=== PATIENT | female | born 1995 | race Caucasian/White ===

== ENCOUNTER 2022-06-24 00:58 | Day surgery (SDC) | payer BC, SELFPAY ==
[2022-06-14 12:55] VITALS: BMI 21.7
--- NOTE | 2022-06-14 13:03 | PC.NURSE ---
Report to the Outpatient Waiting Room, entrance under the green pavilion located off [facility], at time 0600 on date 06/24/22. Planned Procedure Time: 0730. Time changes happen often and if your time is changed the preop area will call you the afternoon before. - You and your visitor will be asked to self-screen and do not enter if you have any COVID symptoms. - Only one visitor is requested with a max of two and NO children visitors are allowed at this time. - The patient visitor may be requested to leave or wait in car when not with patient due to distancing restrictions. - A mask is optional within the hospital at this time. Patients may have clear liquids (water, carbonated beverages, clear teas, apple juice) until 3 hours prior to surgery with a maximum of 20 ounces. - No food from midnight until time of surgery Take the following medications with a SIP of water the morning of surgery: PAROXETINE DO NOT STOP ANY OF YOUR OTHER PRESCRIPTION MEDICATIONS PRIOR TO SURGERY EXCEPT THE FOLLOWING Medications to discontinue per physician: VITAMINS/SUPPLEMENTS Date to take last dose: 06/20/22 Please no make-up, nail nepali, hairspray, perfume, deodorant, or body powder the day of surgery. No jewelry (including any body piercings) or valuables the day of surgery, leave them at home. Please take a shower or bath the night before, or the morning of, surgery with an antibacterial soap. Wear comfortable, loose fitting clothing. - Jewelry must be removed prior to entering the operating room. Rings and piercings that are not removed may be cut off. - The hospital will not accept responsibility for valuables. - Please leave all valuables, including medications, at home the day of surgery. If you are going home after surgery, a licensed cat driver must drive you home. - NO public transportation without another adult if you receive anesthesia. - We recommend that an adult stay with you for 24 hours following discharge. - We also recommend that you do not drive, make important decision, drink alcoholic beverages, or take any drugs that were not prescribed by your health care provider for at least 24 hours after your discharge time. Follow any additional instructions given to you from your surgeon. If you or anyone in your household have experienced Covid symptoms in the past week, please notify your surgeon or the nurse liaison at the phone number below for possible testing. Telephone instructions given to TAMAR RAYO and asked if any additional questions and then verbalized understanding. Patient advised to call surgeon office or pre surgery nurse liaison [phone] if any additional questions.
[2022-06-24 06:09] VITALS: BP 111/70; PULSE 71; RESP 16; TEMP 37.1; O2SAT 99
[2022-06-24] MEDS: LACTATED RINGERS 1,000 ML 30 ML IV CONT (06:30)
--- NOTE | 2022-06-24 07:15 | WPDHPUPDATE1 ---
History and Physical Update Update Date/Time: 06/24/22 07:15 History and Physical has been reviewed, including an updated exam of the patient. There are NO changes in the patient's condition. Risks, benefits, and alternatives have been discussed and questions answered. Patient agrees to proceed with procedure.
--- NOTE | 2022-06-24 07:26 | WPDANESEPPF ---
Anes - Initial Pre Proc Eval Procedure: Operation Date: 06/24/22 07:30 Proposed Procedures p Excision of Left Volar Wrist Ganglion Cyst - Obie Bliss MD Date/Time: 06/24/22 07:26 Surgeon: Obie Bliss MD Pre Op Diagnosis: Lt Volar Wrist Ganglion Cyst Patient Data Age: 27 Gender: F Height: 1.55 m Weight: 49.45 kg Last Vital Signs Temp 37.1 C 06/24/22 06:09 Pulse 71 06/24/22 06:09 Resp 16 06/24/22 06:09 BP 111/70 06/24/22 06:09 Pulse Ox 99 06/24/22 06:09 O2 Del Method Room Air 06/24/22 06:09 Allergies Allergy/AdvReac Type Severity Reaction Status Date / Time Penicillins Allergy Mild RASH Verified 06/14/22 12:54 nitrofurantoin Allergy Rash Verified 06/14/22 12:54 [From Macrobid] Home Medications Medication Instructions Recorded Confirmed Type paroxetine HCl 40 mg tablet 40 mg PO DAILY #30 tabs 04/27/22 06/14/22 Rx dextroamphetamine-amphetamine ER 5 5 mg PO QAM #30 caps 06/07/22 06/14/22 Rx mg 24hr capsule,extend release (Adderall XR) biotin 10,000 mcg chewable tablet 10,000 mcg PO DAILY 06/14/22 06/14/22 History (Hair, Skin and Nails (biotin)) hydrocodone 5 mg-acetaminophen 325 1 tablet PO Q6H PRN pain #5 tabs 06/24/22 Rx mg tablet Patient hx anesthesia problems: none Family hx anesthesia problems: none Results Review: All pre-operative results and documents have been reviewed as part of the pre-operative evaluation. [facility] Past Medical History Medical History Anxiety and depression Encounter for IUD insertion 02/06/15 Mirena insertion Encounter for IUD removal 05/03/19 Mirena removal via hysteroscopy in OR Encounter for screening examination for sexually transmitted disease Surgical History Surgical History H/O eye surgery both eyes as child History of hysteroscopy (05/03/19) 05/03/19 hscope IUD Removal--unable to remove in office Family History Family History Other Unknown family medical history Social History Social History Social History: Caffeine-coffee daily Smoking status: Former smoker Additional smoking assessment comments: FORMER SOCIAL SMOKER Alcohol intake: current Alcohol use details: 2/MONTH Substance use: current Substance use type: marijuana and crack/cocaine Other substance usage details: DAILY MARIJUANA USE Last use: COCAINE - MAY 2022 Lack of Transportation: YES Current Housing: I Have Housing Concerned About Future Housing: No Difficulty Paying Gas/Electric Bills: No Difficulty Paying for Meds: No Currently Unemployed: No Education: Bachelor's Degree Difficulty w/ Childcare or Family Care: No Living arrangements: with friend(s) Additional living arrangements comments: BOYFRIEND Occupation/Education: occupation Additional occupation/education comments: [employer] Gender identity (if verbalized by the patient): Female Sexual Orientation (if Verbalized by the Patient): Straight or Heterosexual Spiritual care concerns: No Anes - Eval Final PreProcedure Day of Procedure 06/24/22 07:26 Patient weight: normal Heart: regular rate and rhythm Lungs: clear to auscultation Airway: Mallampati scale class II Neurological: alert and oriented Last oral intake: >/= 8 hours ASA classification: III Emergent: no Anesthetic plan: proceed Anesthesia type and monitoring: general GIVS and standard monitoring Results Review: All pre-operative results and documents have been reviewed as part of the pre-operative evaluation. Informed Consent: The patient's anesthetic plan and its attendant risks and benefits were discussed with the patient/family/POA. Questions were solicited and answers provided to the satisfaction of the patient/family/POA.
--- NOTE | 2022-06-24 07:27 | P.OP_ITS ---
Procedure Note - Detailed Date of Procedure 06/24/22 Pre-op Diagnosis Lt Volar Wrist Ganglion Cyst Post-op Diagnosis Same Procedure Performed Excision of left volar wrist ganglion cyst Surgeon Obie Bliss MD Senior [employer] Jagjit Anesthesia MAC Indications Painful 2 cm subcutaneous mass Findings Ganglion cyst Description of Procedure The patient's left volar wrist site was marked in the holding area with her consent. She was taken to the operating room and was placed supine on the operating table. She was given IV sedation. The left upper extremity was prepped and draped in usual fashion. The time-out was held and confirmed. The site was marked for an incision and locally infiltrated % lidocaine with epinephrine. The extremity was exsanguinated and the tourniquet inflated to 250 mmHg. The longitudinal incision was made over the mass and skin flaps elevated to either side. Several veins were carefully preserved as the cyst was dissected with primarily blunt dissection until the deep aspect was encountered. The cyst was avulsed from its base. It was not sent to pathology. I was not able to see the radial artery. The tourniquet was released and still we did not clearly define it. Hence, I was reluctant to place sutures to try to coapt the fascia over the origin of the cyst. Most of the bleeding was quelled with digital pressure. The was repaired with intradermal 4-0 Monocryl suture. The usual bandage was applied. She is discharged from the operating room stable condition. A prescription for hydrocodone 5/325 5. Sent to her pharmacy Estimated Blood Loss 3 Drains No Packing No Pathology None sent Complications No immediate complications Condition Stable Disposition Same day
[2022-06-24] MEDS: LIDO 1%/EPINEPHRINE 1:100,000 50 ML VIAL 20 ML INFILTRATE (07:47)
[2022-06-24] MEDS: BACITRACIN OINTMENT 15 GM TUBE 1 APPLIC TOPICAL (08:12)
[2022-06-24 08:18] VITALS: BP 90/52; PULSE 72; RESP 16; O2SAT 98
[2022-06-24 08:45] VITALS: BP 102/75; PULSE 67; RESP 20
[2022-06-24 09:00] VITALS: BP 102/65; PULSE 59; RESP 20
== END 2022-06-24 09:07 | disposition home or self-care (01) ==
PROVIDERS: PCP Family Medicine; Visit Provider Plastic Surgery
PROC: (CPT 25111; principal; 2022-06-24 07:30)
DX: M67.432 Ganglion, left wrist (principal); F41.9 Anxiety disorder, unspecified; F32.A Depression, unspecified; F12.90 Cannabis use, unspecified, uncomplicated; F14.90 Cocaine use, unspecified, uncomplicated; Z87.891 Personal history of nicotine dependence
CPT/HCPCS: 25111; A9270; J2250; J2405; J2704; J3010; J7120

== ENCOUNTER 2025-02-05 15:51 | Outpatient (CLI) | payer BC, SELFPAY ==
--- NOTE | ~2025-02-05 | CT_ITS ---
EXAMINATION: CT soft tissue neck w con DATE: 02/05/2025 16:16 INDICATION: Neck pain. TECHNIQUE: Computed tomography (CT) of the neck was performed with 75 mL Omnipaque-350 intravenous contrast. Automated exposure control and iterative reconstruction technique were employed. The dose-length product was 387.19 mGy-cm. COMPARISON: None FINDINGS: The pharynx and larynx are normal. The major salivary glands are normal. There are no pathologically enlarged lymph nodes. The cervical carotid arteries are normal. The orbits are normal. The mastoid air cells are normal. There is mild mucosal thickening in the paranasal sinuses. There is moderate cervical spondylosis. IMPRESSION: 1. No specific etiology for the patient's symptoms. Reviewed, dictated and finalized at location E.
== END 2025-02-05 15:52 | disposition home or self-care (01) ==
LOC: MICIMG 15:52
PROVIDERS: PCP Otolaryngology; Visit Provider Otolaryngology
DX: M54.2 Cervicalgia (principal)
CPT/HCPCS: 70491; Q9967

== ENCOUNTER 2025-03-30 07:07 | Outpatient (CLI) | payer BC, SELFPAY ==
--- NOTE | ~2025-03-30 | MR_ITS ---
EXAMINATION: MR brain/brain stem wo/w con DATE: 03/30/2025 07:52 INDICATION: Headache, unspecified. TECHNIQUE: Magnetic resonance imaging (MRI) of the brain and brainstem was performed without and with 10 mL MultiHance intravenous contrast. COMPARISON: None. FINDINGS: There is no intracranial hemorrhage, acute infarction, or abnormal intracranial mass lesion. The ventricles are normal in size. The paranasal sinuses are clear. The orbits are normal. The mastoid air cells are normal. IMPRESSION: 1. Normal brain. Reviewed, dictated and finalized at location E. BOSS IMPRESSION: 1. Normal brain.
== END 2025-03-30 07:08 | disposition home or self-care (01) ==
PROVIDERS: PCP Family Medicine; Visit Provider Otolaryngology
DX: R51.9 Headache, unspecified (principal); G89.29 Other chronic pain
CPT/HCPCS: 70553; A9577